=== PATIENT | female | born 1960 | race Caucasian/White ===

== ENCOUNTER 2020-06-06 08:42 | Day surgery (SDC) | payer OTHER ==
[~2020-06-06] VITALS: Ht 167.6 cm; Wt 109.1 kg
[~2020-06-06 08:42] MED LIST: ASPI-496 PO; ATEN25TA PO; LEVO137T2 PO; [UNRECOGNIZED DRUG - OTHER] INH
[2020-06-06 09:13] VITALS: BP 162/78
[2020-06-06] MEDS ORDERED: FLUT1DIS IH (09:26)
[2020-06-06] MEDS ORDERED: LOSA25TA25 PO (09:26)
[2020-06-06] MEDS ORDERED: ALBU8.5H8 INH (09:26)
[2020-06-06] MEDS ORDERED: VITA100C8 PO (09:26)
[2020-06-06] MEDS ORDERED: ERGO400T3 PO (09:30)
[2020-06-06 09:38] LABS: ANION GAP 4 mmol/L (5-15); CALCIUM 9.1 mg/dL (8.5-10.1); CHLORIDE 108 mmol/L (98-107); CREATININE 0.71 mg/dL (0.55-1.02)
[2020-06-06 10:03] LABS: BASOPHILS % (AUTO) 1 % (0-1); EOSINOPHILS % (AUTO) 2 % (1-7); LYMPHOCYTES % (AUTO) 28 % (22-44); MEAN CORPUSCULAR HEMOGLOBIN 31.5 pg (27.0-34.8); MEAN CORPUSCULAR HGB CONC 34.1 g/dL (32.4-35.8); MEAN PLATELET VOLUME 8.6 fL (7.4-10.4); MONOCYTES % (AUTO) 6 % (2-9); NEUTROPHILS % (AUTO) 63 % (42-75); PLATELET COUNT 244 x10^3/uL (130-400); RED BLOOD COUNT 4.15 x10^6/uL (3.82-5.3); RED CELL DISTRIBUTION WIDTH 13.4 % (9.6-15.2)
[2020-06-06 10:10] LABS: MD NO
[2020-06-06] MEDS ORDERED: MIDAZOLAM 1 MG/ML, 5ML ONE (10:13)
[2020-06-06] MEDS ORDERED: FENTANYL PF 100 MCG/2ML ONE (10:13)
[2020-06-06] MEDS ORDERED: VERAPAMIL 2.5 MG/ML, 2ML ONE (10:13)
[2020-06-06] MEDS ORDERED: LIDOCAINE-MPF 1%, 5ML ONE (10:14)
[2020-06-06] MEDS ORDERED: BIVALIRUDIN 250 MG ONE (10:14)
[2020-06-06] MEDS ORDERED: HEPARIN 1,000 UNITS/ML, 10ML ONE (10:14)
[2020-06-06] MEDS ORDERED: NITROGLYCERIN 30 MCG/ML, 20ML VIAL ONE (10:14)
[2020-06-06] MEDS ORDERED: DIPHENHYDRAMINE 50 MG/ML, 1ML ONE (10:38)
== END 2020-06-06 13:15 | disposition home or self-care (01) ==
LOC: CACL 08:42
PROVIDERS: ATTEND Internal Medicine Cardiovascular Disease
DX: I42.8 Other cardiomyopathies (principal); I48.91 Unspecified atrial fibrillation; I10 Essential (primary) hypertension; I34.0 Nonrheumatic mitral (valve) insufficiency; I63.9 Cerebral infarction, unspecified; E78.5 Hyperlipidemia, unspecified; E03.9 Hypothyroidism, unspecified; R73.9 Hyperglycemia, unspecified; J45.909 Unspecified asthma, uncomplicated; Z79.82 Long term (current) use of aspirin; Z79.890 Hormone replacement therapy; Z79.899 Other long term (current) drug therapy; Z87.891 Personal history of nicotine dependence
CPT/HCPCS: 36415; 80048; 85025; 93458; 99156; 99157; C1769; C1894; J1200; J1644; J2250; J3010; Q9967; J0583